=== PATIENT | male | born 1955 | race American Indian/Alaskan Native ===

== ENCOUNTER 2018-03-15 07:39 | Outpatient (CLI) | payer MEDICARE | END 2018-03-15 07:40 | disposition home or self-care (01) | LOC: LAB 07:39 | PROVIDERS: ATTEND Internal Medicine Nephrology | DX: I11.0 Hypertensive heart disease with heart failure (principal); I50.9 Heart failure, unspecified; N17.9 Acute kidney failure, unspecified; R60.0 Localized edema; E78.00 Pure hypercholesterolemia, unspecified; M19.90 Unspecified osteoarthritis, unspecified site; Z90.49 Acquired absence of other specified parts of digestive tract; Z87.891 Personal history of nicotine dependence | CPT/HCPCS: 36415; 80048 ==

== ENCOUNTER 2021-10-10 07:19 | Day surgery (SDC) | payer MEDICARE ==
[~2021-10-10 07:19] MED LIST: SODIUM CHLORIDE 0.9% 1000 ML 1,000 ML IV SCH
--- NOTE | 2021-10-10 08:30 | Short Stay Summary ---
Short Stay Documentation Date of service: 10/10/21 Narrative H&P: The patient is a 66 yo male who presents for outpatient colonoscopy. last colonoscopy ~ 5 years ago. h/o chf; no new gi symptoms/complaints since clinic visit. - History H&P: obtained from office Past Medical History: other (see clinic note) - Allergies and Medications Current Medications: Allergies No Known Allergies Allergy (Unverified 07/02/13 09:50) Home Medications Medication Instructions Recorded Confirmed Last Taken Type Amlodipine Besylate 1 tab PO DAILY 04/03/16 01/21/18 01/18/18 21:00 History Enoxaparin [Lovenox] 40 mg SQ QDAY #3 syringe 01/30/18 Unknown Rx Warfarin [Coumadin] 6 mg PO DAILY@1700 #30 tablet 01/30/18 Unknown Rx carvediloL [Coreg] 25 mg PO BID #60 tablet 01/30/18 Unknown Rx hydrALAZINE [Apresoline TAB] 50 mg PO Q8HR #90 tablet 01/30/18 Unknown Rx lisinopriL [Zestril TAB] 40 mg PO QDAY #30 tablet 01/30/18 Unknown Rx oxyCODONE /ACETAMINOPHEN [Percocet 1 tab PO Q8H PRN #12 tablet 01/30/18 Unknown Rx 5/325 mg] Active Medications Sodium Chloride (Nacl 0.9% 1000 Ml) 1,000 mls @ 50 mls/hr IV DIRECT GENESIS - Physical exam General appearance: no acute distress Lungs: Clear to auscultation Heart: Regular rate Gastrointestinal: normal - Brief post op/procedure progress note Date of procedure: 10/10/21 Pre-op diagnosis: personal history of colon polyps Post-op diagnosis: other (diverticulosis, internal hemorrhoids) Procedure: Colonoscopy Anesthesia: MAC Findings: 1. diverticulosis 2. Internal hemorrhoids Surgeon: RAFFAELE ARIAS Estimated blood loss: none Pathology: none Condition: stable - Disposition Condition at discharge: Good Disposition: 01 HOME / SELF CARE / HOMELESS Short Stay Discharge Plan Follow up with: RANDELL DODD JR, MD [Primary Care Provider] - 7 Days
--- NOTE | 2021-10-10 08:37 | Anesthesia Consultation ---
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
--- NOTE | 2021-10-10 08:37 | Anesthesia Day of Surgery ---
Anesthesia Day of Surgery - Day of Surgery Patient Examined: Yes Patient H&P Reviewed: Yes Patient is NPO: Yes Beta Blockers: Yes
[2021-10-10] MEDS ORDERED: propofoL 200 MG/20 ML VIAL IV ONE (08:39)
[2021-10-10] MEDS ORDERED: fentaNYL 100 MCG/2 ML INJ IV PRN (08:45)
[2021-10-10] MEDS ORDERED: ONDANSETRON 4 MG/2 ML INJ IV PRN (08:45)
[2021-10-10] MEDS ORDERED: ACETAMINOPHEN 325 MG TAB PO PRN (08:45)
--- NOTE | 2021-10-10 08:56 | Operative Report ---
Operative Report Operative Report: Colonoscopy Procedure Note Date of procedure: 10/10/2021 Endoscopist: Isaak Thao Pre-op diagnosis/indication: Surveillance colonoscopy for personal history of colon polyps Post-op diagnosis: Diverticulosis, internal hemorrhoids MEDICATIONS: MAC COMPLICATIONS: No immediate complications ESTIMATED BLOOD LOSS: None DESCRIPTION OF PROCEDURE: After consent was obtained, the patient was placed in the left lateral decubitis position. The olympus colonoscope was inserted into the rectum and advanced to the cecum without difficulty. The patient tolerated the procedure well. The views of the mucosa were good. The quality of prep was good. The patients vital signs were monitored continuously throughout the procedure. FINDINGS: There were a few small, scattered diverticula in the colon. Internal hemorrhoids were visualized on retro-flexion view. Otherwise, the colon appeared normal. IMPRESSION: 1. Diverticulosis 2. Internal hemorrhoids RECOMMENDATIONS: -high fiber diet daily -repeat colonoscopy in 5 years
[2021-10-10] MEDS ORDERED: LIDOCAINE MPF (2%) 20 MG/1 ML VIAL 5 ML ONE (08:57)
--- NOTE | 2021-10-10 10:34 | Post Anesthesia Evaluation ---
- Post Anesthesia Evaluation Patient Participated: Yes Airway Patent: Yes Stable Respiratory Function: Yes Nausea/Vomiting: Yes Temp > 96.8F: Yes Pain Manageable: Yes Adequeate Hydration: Yes Anesthesia Complications: No
[2021-10-10 10:54] VITALS: BP 125/77
== END 2021-10-10 09:45 | disposition home or self-care (01) ==
LOC: GIO 07:19
PROVIDERS: ATTEND Internal Medicine Gastroenterology
DX: Z12.11 Encounter for screening for malignant neoplasm of colon (principal); K57.30 Diverticulosis of large intestine without perforation or abscess without bleeding; K64.8 Other hemorrhoids; I11.0 Hypertensive heart disease with heart failure; I50.9 Heart failure, unspecified; I42.9 Cardiomyopathy, unspecified; M19.90 Unspecified osteoarthritis, unspecified site; F32.9 Major depressive disorder, single episode, unspecified; F41.9 Anxiety disorder, unspecified; Z86.010 Personal history of colon polyps; Z79.899 Other long term (current) drug therapy; Z79.01 Long term (current) use of anticoagulants; Z95.0 Presence of cardiac pacemaker; Z90.49 Acquired absence of other specified parts of digestive tract; Z91.81 History of falling; Z98.890 Other specified postprocedural states; Z72.89 Other problems related to lifestyle; Z86.73 Personal history of transient ischemic attack (TIA), and cerebral infarction without residual deficits
CPT/HCPCS: G0105; J2704; J3490; J7030; J7120; Q0162